=== PATIENT | male | born 1980 | race Asian ===

== ENCOUNTER 2025-03-01 11:11 | Inpatient (IN) ==
[2025-03-01] MEDS: NITROGLYCERIN SL 0.4 MG/TAB TAB SL PRN (11:33)
[2025-03-01] MEDS: ASPIRIN CHEW 324 MG PO STA (11:33)
[2025-03-01] MEDS: HEPARIN SOD (PORCINE) 1000 UNIT/ML IV ONE (11:34)
--- NOTE | 2025-03-01 11:36 | Emergency Department Note ---
Impression & Plan STEMI (ST elevation myocardial infarction), Chest pain, Tobacco abuse disorder ED Provider Note NAME: CHANDLER BARRERA AGE: 44 SEX: M : 1980 ARRIVES VIA: Walk-In INFORMANT: Patient[, ] ED PROVIDER(S): Alex Fountain MD CHIEF COMPLAINT: Chest pain MEDICAL DECISION MAKING: Shortly after signing for the patient I was given the patient's EKG which showed concern for acute STEMI. I did emergently go to the patient's room and the patient was having chest pain so a heart alert was called. Patient recently traveled from [place]. No signs or stigmata of DVT on exam. The patient was ordered aspirin heparin Brilinta as well as nitro. I did inform nursing to only give 1 nitro as there was concern for possibility of inferior TN but his pressure was currently 150/100. IV fluids also ordered. I did speak the on- call hospitalist service and did message the intensive care unit service. Critical Care: I have personally spent 35 minutes of critical care time in direct management of this patient. This includes bedside care, interpretation of diagnostic studies, and testing, discussion with consultants, patient, and family members, and other require inpatient management activities. This 35 minutes is in excess of all separately billable procedures. Discussion w/ other healthcare providers: Dr. Villalta and Dr. Koenig inpatient medicine service Dr. Jacome warehouse director and Dr. Garza Prior /Outside records reviewed: None Differential diagnosis: Cardiac ischemia, aortic dissection, pulmonary embolism, pneumothorax, pneumonia, pericarditis, myocarditis, GERD, cholecystitis, pancreatitis, musculoskeletal, as well as other pathologies were considered. Diagnostics, as interpreted by me: ECG: Normal sinus rhythm, ventricular rate of 64, borderline QRS, ST elevations inferiorly with depressions anteriorly. Concern for STEMI. Cardiac monitoring: An order was placed for continuous cardiac monitoring. The monitor shows a rate of 67 with sinus rhythm. Patient was placed on pulse oximetry Medical decision rules: Heart score Imaging studies: I informally interpreted the patient'sChest x-ray does not show obvious pneumonia or pneumothoraxwith formal report to follow. HPI: Patient presents due to concern for chest pain. Patient reportedly has had it for several days but seem to worsen yesterday. Manager Global services were utilized. The patient states that his pain seem to worsen yesterday at centralized associated sweatiness and tightness. The patient did take his blood pressure medication but took nothing else. The patient has had nausea and did try to self-induced vomiting. Patient denies any shortness of breath leg swelling or calf pain. The patient did recently travel from [place] and is visiting locally. He is accompanied by a friend. Patient does smoke 1 pack/day. No pertinent past surgical history. PAST MEDICAL HISTORY: High blood pressure PAST SURGICAL HISTORY: No pertinent past surgical history SOCIAL HISTORY: Smoking use, denies drug or alcohol use. HOME MEDICATIONS: See Below ALLERGIES: See Below VITALS: See Below PHYSICAL EXAMINATION: GENERAL: Ill in appearance. EYE EXAM: Normal conjunctiva. PERRL, no anisocoria and EOM's grossly intact w/o pain. OROPHARYNX: Moist mucus membranes, grossly normal dentition. NECK: Trachea midline, no stridor. Supple, no nuchal rigidity, no adenopathy, non-tender. No signs of meningismus. FROM of the neck with good chin to chest and neck extension. LUNGS: Clear to auscultation. Normal chest wall mechanics. HEART: NSR, no MRG. ABDOMEN: Abdomen soft, non-tender, no masses, no rebound or guarding. SKIN: No rashes and no bruising. UPPER EXTREMITIES: Upper extremities are grossly normal. LOWER EXTREMITIES: Grossly normal, no edema. Negative Homans' sign bilaterally. NEURO EXAM: Awake and alert, follows commands, no obvious facial asymmetry, normal speech, moves all 4 extremities. Past Med/Surg History Problem List (Updated 03/01/25 @ 18:51 by Alex Fountain MD) STEMI (ST elevation myocardial infarction) (Acute) Tobacco abuse disorder (Acute) CAD (coronary atherosclerotic disease) Acute [place] inferior lateral first episode care Chest pain (Acute) Social History Smoking Status: Current every day smoker Tobacco Type: Cigarettes Cigarettes Per Day: 1 pack per day; Second Hand Exposure: No; Do You Dip or Chew Tobacco: No; Tobacco Cessation Education Requested by Patient: No Hx Alcohol Use: No Hx Substance Use: No Preferred Language: Mandarin Vietnamese Communication Ability: welt wheeler Communication Tools: IPad Manager Global Required: Yes Beliefs That Will Affect Care: None Current Living Situation: Spouse Other Information That Helps Us Care for You: No Feels Safe at Home: Yes Safety Concerns: Feels Safe At This Time Assistive Devices: None Home Meds Home Medications Medication Instructions Recorded Confirmed amlodipine 5 mg tablet 5 mg PO DAILY 03/01/25 03/01/25 Results & Data (ED) Vital Signs Vital Signs - 24 hr 03/01/25 11:14 03/01/25 11:22 03/01/25 11:22 Temperature 36.4 C L Temperature Source Oral Pulse Rate 62 Pulse Rate [Apical] 70 Respiratory Rate 18 22 Respiratory Effort / Characteristics Non-Labored Spontaneous Respiratory Depth Normal Normal Blood Pressure 143/93 H Blood Pressure [Right Arm] 150/106 H Blood Pressure Mean 109 Blood Pressure Mean [Right Arm] 120 Blood Pressure Position Sitting Pulse Oximetry 99 99 Oxygen Delivery Method Room Air Room Air Room Air Sepsis Recent Fever Within 48 Hours No Sepsis New/Unexplained Change in Mental Status N/A Sepsis Action Taken by Nursing No Action Required 03/01/25 11:25 03/01/25 11:49 03/01/25 12:00 Temperature Temperature Source Pulse Rate 63 65 Pulse Rate [Apical] 65 Respiratory Rate 20 18 Respiratory Effort / Characteristics Non-Labored Respiratory Depth Normal Blood Pressure 130/83 Blood Pressure [Right Arm] 130/83 Blood Pressure Mean Blood Pressure Mean [Right Arm] 98 Blood Pressure Position Pulse Oximetry 96 98 Oxygen Delivery Method Room Air Room Air Sepsis Recent Fever Within 48 Hours Sepsis New/Unexplained Change in Mental Status Sepsis Action Taken by Senior Care Medications Current Medication List: was personally reviewed by me Laboratory Data Attestation: I reviewed the patient's lab results. 03/01/25 11:34 03/01/25 11:34 Lab Results 03/01/25 Range/Units 11:34 WBC 10.32 (4.8-10.8) K/ul RBC 5.44 (4.70-6.10) M/uL Hgb 15.6 (14.0-18.0) g/dl Hct 47.0 (42.0-52.0) % MCV 86.4 (80.0-100.0) fL MCH 28.7 (25.0-34.0) pg MCHC 33.2 (32.0-36.0) g/dL RDW Std Deviation 42.7 (36.4-46.3) fL RDW Coeff of Jeremias 13.8 (11.5-14.5) % Plt Count 330 (130-400) K/uL MPV 9.7 (9.4-12.4) fL Immature Gran % (Auto) 0.4 % Neut % (Auto) 53.0 % Lymph % (Auto) 39.5 % [place] % (Auto) 5.0 % Eos % (Auto) 1.6 % Baso % (Auto) 0.5 % Neut # (Auto) 5.47 (1.40-6.50) K/uL Lymph # (Auto) 4.08 H (1.20-3.40) K/uL [place] # (Auto) 0.52 (0.11-0.59) K/uL Eos # (Auto) 0.16 (0.00-0.50) K/uL Baso # (Auto) 0.05 (0.00-0.20) K/uL Immature Gran # (Auto) 0.04 (0.01-0.20) K/uL PT 10.5 (9.0-12.0) Seconds INR 1.0 (0.9-1.1) APTT 22 (21-31) Seconds PTT Ratio 0.8 Sodium 138 (136-145) mmol/L Potassium 4.0 (3.5-5.1) mmol/L Chloride 104 (98-107) mmol/L Carbon Dioxide 25 (21-32) mmol/L Anion Gap 9 (3-11) BUN 11 (6-23) mg/dl Creatinine 1.13 (0.6-1.4) mg/dl Est Cr Clr Drug Dosing 82.4 ml/min eGFR 83.22 BUN/Creatinine Ratio 9.7 L (10-20) Glucose 164 H (70-99(Fasting)) mg/dl Calcium 9.9 (8.6-10.3) mg/dl Magnesium 2.4 (1.7-2.4) mg/dl Total Bilirubin 0.7 (0.2-1.0) mg/dl AST 24 (13-39) U/L ALT 28 (7-52) U/L Alkaline Phosphatase 132 H (34-104) U/L Total Creatine Kinase 81 (30-223) U/L Troponin I High Sens 72.2 H* (0-20) pg/ml B-Natriuretic Peptide 84 (0-100) pg/ml Total Protein 8.8 H (6.0-8.3) gm/dl Albumin 4.6 (3.4-5.0) gm/dl Globulin 4.2 H (2.5-4.0) gm/dl Albumin/Globulin Ratio 1.1 (0.9-2) Lipase 22 (11-82) U/L TSH 1.131 (0.300-4.500) uIu/ml Administered Medications Nitroglycerin (Nitroglycerin Sl 0.4 Mg/Tab Tab) 0.4 mg SL Q5M PRN PRN Reason: Chest Pain Stop: 03/31/25 11:26 Last Admin: 03/01/25 11:33 Dose: 0.4 mg Documented By: MMG Discontinued Medications Aspirin (Aspirin Chew 324 Mg) 324 mg PO NOW STA Stop: 03/01/25 11:28 Last Admin: 03/01/25 11:33 Dose: 324 mg Documented By: MMLion Atropine Sulfate (Atropine Sulfate 0.1 Mg/Ml 10ml Syr) Confirm Administered Dose 1 mg IV .STK-MED ONE Stop: 03/01/25 12:08 Last Admin: 03/01/25 12:17 Dose: 1 mg Documented By: JOAN Fentanyl Citrate (Fentanyl Citrate Pf 100 Mcg/2 Ml Vial) Confirm Administered Dose 100 mcg .ROUTE .STK-MED ONE Stop: 03/01/25 11:46 Last Increment: 03/01/25 12:16 Dose: 25 mcg Documented By: JOAN Heparin Sodium (Porcine) (Heparin Sod (Porcine) 1000 Unit/Ml) 5,000 units IV NOW ONE Stop: 03/01/25 11:28 Last Admin: 03/01/25 11:34 Dose: 5,000 units Documented By: MMLion Co-signed By: Jose David Heparin Sodium (Porcine) (Heparin (Porcine) 1000 Unit/Ml 10 Ml (Weight Reducing Technician Use Only)) Confirm Administered Dose 10,000 units .ROUTE .STK-MED ONE Stop: 03/01/25 11:46 Last Admin: 03/01/25 12:16 Dose: 5,000 units Documented By: [facility] Heparin Sodium/Sodium Chloride (Heparin In Nss Infusion 1000 Unit/500 Ml (2 U/Ml) Bag) Confirm Administered Dose 3,000 units IV .STK-MED ONE Stop: 03/01/25 11:46 Last Admin: 03/01/25 12:16 Dose: 3,000 units Documented By: [facility] Sodium Chloride (Nss) 500 mls @ 999 mls/hr IV .Q31M ONE Stop: 03/01/25 12:06 Last Infusion: 03/01/25 13:39 Dose: Infused Documented By: Admin: 03/01/25 11:45 Dose: 999 mls/hr Documented By: ISAAC Iodixanol (Iodixanol (Visipaque) 320 Mg/Ml 100ml) Confirm Administered Dose 1 ml IV .STK-MED ONE Stop: 03/01/25 11:46 Last Admin: 03/01/25 12:16 Dose: Not Given Documented By: [facility] Ioversol (Optiray 350) Confirm Administered Dose 1 ml .ROUTE .STK-MED ONE Stop: 03/01/25 11:46 Last Admin: 03/01/25 13:38 Dose: Not Given Documented By: LALITA Midazolam HCl (Midazolam Hcl 1 Mg/Ml 2ml Vial) Confirm Administered Dose 2 mg .ROUTE .STK-MED ONE Stop: 03/01/25 11:46 Last Increment: 03/01/25 12:17 Dose: 1 mg Documented By: [facility] Nicardipine HCl (Nicardipine 2,000 Mcg/20 Ml Syr) Confirm Administered Dose 2,000 mcg .ROUTE .STK-MED ONE Stop: 03/01/25 11:46 Last Admin: 03/01/25 12:17 Dose: 2,000 mcg Documented By: [facility] Nitroglycerin/Dextrose (Nitroglycerin/D5w 100mcg/Ml 20ml Syr) Confirm Administered Dose 2,000 mcg .ROUTE .STK-MED ONE Stop: 03/01/25 11:46 Last Admin: 03/01/25 12:17 Dose: 2,000 mcg Documented By: [facility] Ticagrelor (Ticagrelor 90 Mg Tab) 180 mg PO ONE ONE Stop: 03/01/25 11:28 Last Admin: 03/01/25 11:39 Dose: 180 mg Documented By: ISAAC Imaging Data Radiologist's Impression: Chest X-Ray 03/01/25 11:27 XR chest 1V portable HISTORY: 44 years-old Male Chest pain, nonspecific COMPARISON: None TECHNIQUE: AP view of the chest FINDINGS: Cardiac silhouette is upper limits of normal in size. No pneumothorax, pleural effusion or airspace consolidation. The bones appear grossly intact. IMPRESSION: No acute process. ACT 112: Negative or not required by law. The above report was generated using voice recognition software. It may contain grammatical, syntax or spelling errors. Electronically signed by: Ventura Toscano M.D. 03/01/2025 11:48 AM Discharge Plan Visit Data Chief Complaint: Chest Pain Stated Complaint: CHEST PAIN, HIGH BP, HARD TO BREATH ED Provider: Alex Fountain Discharge Problem: STEMI (ST elevation myocardial infarction), Chest pain, Tobacco abuse disorder Patient Disposition: Admitted As Inpatient Condition: Fair Discharge Instructions Interventions: ED Discharge Assessment Last Done: 03/01/25 12:00 Discharge Problem: STEMI (ST elevation myocardial infarction) Qualifiers: Involved coronary artery: right coronary artery Qualified Code(s): I21.11 - ST elevation (STEMI) myocardial infarction involving right coronary artery Chest pain Qualifiers: Chest pain type: unspecified Qualified Code(s): R07.9 - Chest pain, unspecified
[2025-03-01] MEDS: TICAGRELOR 90 MG TAB PO ONE (11:39)
[2025-03-01] MEDS: SODIUM CHLORIDE 0.9% 500 ML IV ONE (11:45)
--- NOTE | 2025-03-01 11:50 | XRay Report ---
XR chest 1V portable HISTORY: 44 years-old Male Chest pain, nonspecific COMPARISON: None TECHNIQUE: AP view of the chest FINDINGS: Cardiac silhouette is upper limits of normal in size. No pneumothorax, pleural effusion or airspace c onsolidation. The bones appear grossly intact. IMPRESSION: No acute process. ACT 112: Negative or not required by law. The above report was generated using voice recognition software. It may contain grammatical, syntax o r spelling errors. Electronically signed by: Ventura Toscano M.D. 03/01/2025 11:48 AM
[2025-03-01 11:56] LABS: Basophils # (auto) 0.05 K/uL (0.00-0.20); Basophils % (auto) 0.5 %; Eosinophils # (auto) 0.16 K/uL (0.00-0.50); Eosinophils % (auto) 1.6 %; Hemoglobin 15.6 g/dl (14.0-18.0); Immature Granulocytes # (auto) 0.04 K/uL (0.01-0.20); Immature Granulocytes % (auto) 0.4 %; Lymphocytes # (auto) 4.08 K/uL (1.20-3.40); Lymphocytes % (auto) 39.5 %; Mean Corpuscular Hemoglobin 28.7 pg (25.0-34.0); Mean Corpuscular Hgb Conc 33.2 g/dL (32.0-36.0); Mean Corpuscular Volume 86.4 fL (80.0-100.0); Mean Platelet Volume 9.7 fL (9.4-12.4); Monocytes # (auto) 0.52 K/uL (0.11-0.59); Neutrophils # (auto) 5.47 K/uL (1.40-6.50); Platelet Count 330 K/uL (130-400); RDW Coefficient of Variation 13.8 % (11.5-14.5); RDW Standard Deviation 42.7 fL (36.4-46.3); Red Blood Count 5.44 M/uL (4.70-6.10); White Blood Count 10.32 K/ul (4.8-10.8)
[2025-03-01 12:00] LABS: Partial Thromboplastin Ratio 0.8; Partial Thromboplastin Time 22 Seconds (21-31); Prothrombin Time 10.5 Seconds (9.0-12.0)
--- NOTE | 2025-03-01 12:07 | History & Physical Report ---
Date of Service March 01, 2025 Assessment & Plan (1) Chest pain: (2) Acute [place] inferior lateral first episode care: Plan Pt is a 44 yo male who presented to ED with chest pain and found to have ECG with findings of acute inferior lateral FL. HR was stable in the 60's, BP was elevated 150/106, O2 sat was >90% on RA. Troponin drawn, pending. Pt was taken to labor relations teacher. #Chest pain/Acute inferolateral FL Pt was taken to labor relations teacher and found to have 100% occlusion at mid-distal RCA, which was stented. Other occlusions found: Mid LAD- 80%, left circumflex-90% at mid segment stenosis followed by focal 70-80% stenosis. Pt admitted to ICU, followed by critical care team. - Interventional cardiology consult, recommendations appreciated: Continue aspirin Brilinta x 1 yr Start beta-stef and statin Echocardiogram for 03/02/25 Admit to ICU Outpatient cardiac rehab following hospital DC Staged PCI of left circumflex and LAD prior to discharge Follow up with cardiology outpatient in 4 weeks - Critical care team following Started metoprolol, aspirin, atorvastatin Dispo: ICU Code: Full Diet: NPO, heart healthy diet following procedure DVT prophylaxis: Heparin drip History of Present Illness Chief Complaint: Chest pain Primary Care Provider: NO PCP Pt is a 44 yo male with PMH of HTN and kidney stone who presented to ED with 2 days of chest pain, SOB and cold sweats that progressed over the last 24 hours. Translation services was used for interview and exam as speaks mandarin wolof only. He is from [place] and arrived in the in Nov 2024. His is in [place] visiting friends/family, pt came to [place] 3 days ago to visit friends. At bedside is pt's friends and 2 children- who speaks [place]an and mandarin and assists somewhat with translation. Pt reports that he was feeling unwell when he arrived in [place], but symptoms increased last night prompting him to come to ED. Pt's friend states this morning pt was pale, sweating and SOB. Pt denies personal history of heart problems. He does not know if he has high cholesterol. He endorses smoking 1 pack of cigarettes per day for many years. Pt states he was taking amlodipine 5mg for HTN up until 2 weeks ago, when he stopped taking due to normal BP. Pt's father from an [place] in his 60's. No other known family history of cardiac problems. Pt denies abdominal pain, headache, nausea, vomiting, syncope, extremity weakness, altered sensation, or dysuria Pt denies alcohol or recreational drug use. Home Medications Medication Instructions Recorded Confirmed Type amlodipine 5 mg tablet 5 mg PO DAILY 03/01/25 03/01/25 History Past Med/Surg History Problem List (Updated 03/01/25 @ 13:08 by Zack Jacome DO) STEMI (ST elevation myocardial infarction) Tobacco abuse disorder CAD (coronary atherosclerotic disease) Acute [place] inferior lateral first episode care Chest pain Social History Smoking Status: Current every day smoker Tobacco Type: Cigarettes Cigarettes Per Day: 1 pack per day; Second Hand Exposure: No; Do You Dip or Chew Tobacco: No; Tobacco Cessation Education Requested by Patient: No Hx Alcohol Use: No Hx Substance Use: No Preferred Language: Mandarin Luxembourger Communication Ability: element burner Communication Tools: IPad Inbound Customer Service Agent Required: Yes Beliefs That Will Affect Care: None Current Living Situation: Spouse Other Information That Helps Us Care for You: No Feels Safe at Home: Yes Safety Concerns: Feels Safe At This Time Assistive Devices: None Review of Systems Review of Systems: As per HPI Physical Exam Physical Exam: Pt examined following cardiac cath and stent placement Gen: Sitting up in bed, NAD Cardio: RRR, S1, S2, no murmurs Respiratory: CTAB, No increased work of breathing. Abd: Soft, nontender, normoactive BS Neuro: A&O x 3 Skin: Dry, no rashes Extremities: Able to move all extremities on command. No LE edema noted Psych: Mood congruent Results & Data Results & Data Vital Signs (Past 12 Hours) Vital Signs Temp Pulse Pulse Resp BP BP Pulse Ox 03/01/25 12:00 65 18 130/83 98 03/01/25 11:49 65 20 130/83 96 03/01/25 11:25 63 03/01/25 11:22 03/01/25 11:22 70 22 150/106 H 99 03/01/25 11:14 36.4 C L 62 18 143/93 H 99 O2 Del Method 03/01/25 12:00 Room Air 03/01/25 11:49 Room Air 03/01/25 11:25 03/01/25 11:22 Room Air 03/01/25 11:22 Room Air 03/01/25 11:14 Room Air Laboratory Results Abnormal lab results 03/01/25 Range/Units 11:34 Lymph # (Auto) 4.08 H (1.20-3.40) K/uL BUN/Creatinine Ratio 9.7 L (10-20) Glucose 164 H (70-99(Fasting)) mg/dl Alkaline Phosphatase 132 H (34-104) U/L Diagnostic Findings Chest X-Ray 03/01/25 11:27 XR chest 1V portable HISTORY: 44 years-old Male Chest pain, nonspecific COMPARISON: None TECHNIQUE: AP view of the chest FINDINGS: Cardiac silhouette is upper limits of normal in size. No pneumothorax, pleural effusion or airspace consolidation. The bones appear grossly intact. IMPRESSION: No acute process. ACT 112: Negative or not required by law. The above report was generated using voice recognition software. It may contain grammatical, syntax or spelling errors. Electronically signed by: Ventura Toscano M.D. 03/01/2025 11:48 AM Supervising Physician Co-Signing Physician Notes I personally examined the patient and verified hager points of history and exam, discussed case, and agree with decision making and plan documented by Dr. Villalta. [employer] land appraiser [id number] utilized during examination. Patient visiting from [email or web address] with his who is currently in [place]. He came to [place] to visit a friend he grew up with who lives here. Reported intense chest pain and malaise today. Patient found to have acute myocardial infarction with STEMI on ECG and elevated troponins. [place] to right coronary on catheterization today. Recommended continuation of aspirin and Brilinta telemetry, with guideline directed medical therapy including beta-stef and statin. Examined patient post catheterization. Patient appears comfortable, lungs clear b/l to auscultation, regular rate and rhythm, no LE edema, no acute distress. Patient reports improvement of chest pain. Patient's father in 60s of [place]. He smokes 1ppd. Has not been taking prescribed amlodipine for over a month. Monitor in ICU. Resident Activity Tracking Resident Involvement: Resident Care Provided Care Provided: Adult Hospital Medicine
[2025-03-01 12:09] LABS: Albumin Level 4.6 gm/dl (3.4-5.0); BUN Creatinine Ratio 9.7 (10-20); Calcium 9.9 mg/dl (8.6-10.3); Creatinine Clr Calc Pharmacy 82.4 ml/min; Magnesium 2.4 mg/dl (1.7-2.4)
[2025-03-01] MEDS: HEPARIN (PORCINE) 1000 UNIT/ML 10 ML (CATH LAB USE ONLY) ONE (12:16)
[2025-03-01] MEDS: IODIXANOL (VISIPAQUE) 320 MG/ML 100ML IV ONE (12:16)
[2025-03-01] MEDS: fentaNYL citrate PF 100 MCG/2 ML VIAL ONE (12:16)
[2025-03-01 12:17] LABS: Albumin Globulin Ratio 1.1 (0.9-2); Bilirubin,Total 0.7 mg/dl (0.2-1.0); Globulin 4.2 gm/dl (2.5-4.0); Total Protein 8.8 gm/dl (6.0-8.3)
[2025-03-01] MEDS: MIDAZOLAM HCL 1 MG/ML 2ML VIAL ONE (12:17)
[2025-03-01] MEDS: NITROGLYCERIN/D5W 100MCG/ML 20ML SYR ONE (12:17)
[2025-03-01] MEDS: ATROPINE SULFATE 0.1 MG/ML 10ML SYR IV ONE (12:17)
[2025-03-01] MEDS: niCARdipine 2,000 MCG/20 ML SYR ONE (12:17)
[2025-03-01 12:26] LABS: Thyroid Stimulating Hormone 1.131 uIu/ml (0.300-4.500)
[2025-03-01 12:28] LABS: Troponin I High Sensitivity 72.2 pg/ml (0-20)
--- NOTE | 2025-03-01 12:47 | Cardiac Catheterization ---
Cardiac Cath Procedure Full Procedure Date March 01, 2025 Pre-Procedure Diagnosis Pre-Procedure Diagnosis: STEMI AUC Score AUC Score: 9 Post-Procedure Diagnosis Post-Procedure Diagnosis: Severe CAD, Successful PCI and Normal LV Systolic Function Procedure(s) Performed Procedure(s) Performed: Coronary Angiography, Left Heart Cath, LV Angiography, PTCA and Drug Eluting Stent Time Stamp Assembler Goyo Feng MD Estimated Blood Loss Estimated Blood Loss: 5 cc Summary of Findings STEMI cath report Procedures performed 1. Retrograde insertion of a right radial sheath, 5/6 slender using Seldinger technique 2. Coronary angiography 3. Left heart cath and left ventriculography 4. Percutaneous intervention of the left circumflex using a 4.0 mm x 26 mm Synergy XD drug-eluting stent in the mid to distal RCA 5. Moderate sedation Procedure: Patient was brought to the cardiac apposition lab in emergent condition, emergent consent was obtained The right radial site and the right groin site were prepped in normal fashion We then administered 1% lidocaine to the right radial site We then inserted a 5/6 slender sheath in the right radial artery using Seldinger technique We then advanced a JR4 guide to the right coronary artery and selective arteriograms were obtained We then advanced an JL 3.5 diagnostic catheter to the left left coronary artery system and selective arteriograms were obtained, the results are as below We then used a pigtail catheter to perform a left heart catheterization and LV gram, the results are as below Left heart catheterization: LVEDP: 28 mmHg Left ventriculogram: LV function of 60% with lateral and inferior wall hypokinesis Gradient across aortic valve: None noted Coronary angiography 1. Left main: Is a large size vessel which has diffuse luminal irregularities 2. Left anterior descending artery is a large size artery which has focal ulcerated 80% stenosis in the midsegment the vessel. The rest the vessel has diffuse luminal irregularities. There are 2 small size diagonal branches which have diffuse luminal irregularities 3. Left circumflex: Is a small size artery which has 90% mid segment stenosis, followed by a focal 70 to 80% stenosis, the rest of the vessel has mild nonobstructive CAD. There is a small size obtuse marginal 1 branch which has mild nonobstructive CAD 4. Right coronary artery: Is a large size artery which has very ulcerated and aneurysmal proximal to mid segment of the vessel which has 20 to 30% diffuse stenosis. The mid segment of the vessel leading into the distal segment has 100% occlusion, the rest of the vessel has SALVADOR 0 flow Following the diagnostic portion of the coronary angiography were performed PCI of the right coronary artery We then advanced a run-through wire to the distal segment of the RCA We then advanced a 2.5 x 12 mm NC balloon performed predilatation of the lesion 18 aguilar x 2 Lesion: Mid to distal RCA Lesion length: 22 mm Pre-PCI stenosis: 100% Pre-PCI SALVADOR flow: 0 Post-PCI stenosis: 0% Post-PCI stenosis: 3 Stent: We then advanced a 4.0 mm x 26 mm Synergy XD drug-eluting stent and deployed this at 16 aguilar Following this a cine image of the right coronary artery showed good stent expansion, good apposition and no edge dissection or no distal wire perforation Following the completion of the procedure the wire and catheter were removed from the body . The patient was monitored, patient's heart rate, blood pressure, respiratory rate were monitored through the entire the procedure There were no complications were noted Patient was transferred to the ICU in stable condition Case was discussed with hospital medicine as well as general crop production advisor on- call Findings 1. Severe obstructive coronary artery disease of the right coronary artery, culprit vessel for the STEMI 2. Residual obstructive coronary artery disease of the left circumflex and LAD, known culprit lesions 3. Normal LV function of 60% with inferior wall hypokinesis 4. Severely elevated LVEDP of 28 mmHg 5. Successful PCI of the right coronary artery with 1 drug-eluting stent Recommendations: We would recommend continuation of aspirin and Brilinta for 1 year We would recommend addition of beta-stef and statin for guideline directed medical therapy for his coronary artery disease We would recommend echocardiogram in a.m. Would recommend admission to ICU Critical care medicine to admit, cardiology to follow Would recommend outpatient cardiac rehabilitation Would recommend staged PCI of the left circumflex and LAD prior to discharge Would recommend follow-up with primary crop production advisor in 4 weeks Hemodynamics Rest Ao:: 112/86 Final Ao: 124/76 LV: 122/08/11 Recommendations Recommendations: Management Recommendatons (As stated above in Recommendations) Radiation Exposure (mGy) Please refer to Prepress Technician log Contrast (mls) Please refer to Prepress Technician log I attest to the content of the Intraoperative Record and any orders documented therein. Any exceptions are noted below. ACC Data: Prepress Technician Cardiac Status Clinical evaluation leading to the procedure CAD Presenation: STEMI Diagnostic Physicians Name: Goyo Feng MD Closure Device Recommendations: Management Recommendatons (As stated above in Recommendations)
--- NOTE | 2025-03-01 12:50 | Cardiac Catheterization ---
Cardiac Cath Procedure Full Procedure Date March 01, 2025 Pre-Procedure Diagnosis Pre-Procedure Diagnosis: STEMI AUC Score AUC Score: 9 Post-Procedure Diagnosis Post-Procedure Diagnosis: Severe CAD, Successful PCI and Normal LV Systolic Function Procedure(s) Performed Procedure(s) Performed: Coronary Angiography, Left Heart Cath, LV Angiography, PTCA and Drug Eluting Stent Show Card Writer Goyo Feng MD Estimated Blood Loss Estimated Blood Loss: 5 cc Summary of Findings STEMI cath report Procedures performed 1. Retrograde insertion of a right radial sheath, 5/6 slender using Seldinger technique 2. Coronary angiography 3. Left heart cath and left ventriculography 4. Percutaneous intervention of the left circumflex using a 4.0 mm x 26 mm Synergy XD drug-eluting stent in the mid to distal RCA 5. Moderate sedation Procedure: Patient was brought to the cardiac apposition lab in emergent condition, emergent consent was obtained The right radial site and the right groin site were prepped in normal fashion We then administered 1% lidocaine to the right radial site We then inserted a 5/6 slender sheath in the right radial artery using Seldinger technique We then advanced a JR4 guide to the right coronary artery and selective arteriograms were obtained We then advanced an JL 3.5 diagnostic catheter to the left left coronary artery system and selective arteriograms were obtained, the results are as below We then used a pigtail catheter to perform a left heart catheterization and LV gram, the results are as below Left heart catheterization: LVEDP: 28 mmHg Left ventriculogram: LV function of 60% with lateral and inferior wall hypokinesis Gradient across aortic valve: None noted Coronary angiography 1. Left main: Is a large size vessel which has diffuse luminal irregularities 2. Left anterior descending artery is a large size artery which has focal ulcerated 80% stenosis in the midsegment the vessel. The rest the vessel has diffuse luminal irregularities. There are 2 small size diagonal branches which have diffuse luminal irregularities 3. Left circumflex: Is a small size artery which has 90% mid segment stenosis, followed by a focal 70 to 80% stenosis, the rest of the vessel has mild nonobstructive CAD. There is a small size obtuse marginal 1 branch which has mild nonobstructive CAD 4. Right coronary artery: Is a large size artery which has very ulcerated and aneurysmal proximal to mid segment of the vessel which has 20 to 30% diffuse stenosis. The mid segment of the vessel leading into the distal segment has 100% occlusion, the rest of the vessel has SALVADOR 0 flow Following the diagnostic portion of the coronary angiography were performed PCI of the right coronary artery We then advanced a run-through wire to the distal segment of the RCA We then advanced a 2.5 x 12 mm NC balloon performed predilatation of the lesion 18 aguilar x 2 Lesion: Mid to distal RCA Lesion length: 22 mm Pre-PCI stenosis: 100% Pre-PCI SALVADOR flow: 0 Post-PCI stenosis: 0% Post-PCI stenosis: 3 Stent: We then advanced a 4.0 mm x 26 mm Synergy XD drug-eluting stent and deployed this at 16 aguilar Following this a cine image of the right coronary artery showed good stent expansion, good apposition and no edge dissection or no distal wire perforation Following the completion of the procedure the wire and catheter were removed from the body . The patient was monitored, patient's heart rate, blood pressure, respiratory rate were monitored through the entire the procedure There were no complications were noted Patient was transferred to the ICU in stable condition Case was discussed with hospital medicine as well as general seed tester on- call Findings 1. Severe obstructive coronary artery disease of the right coronary artery, culprit vessel for the STEMI 2. Residual obstructive coronary artery disease of the left circumflex and LAD, known culprit lesions 3. Normal LV function of 60% with inferior wall hypokinesis 4. Severely elevated LVEDP of 28 mmHg 5. Successful PCI of the right coronary artery with 1 drug-eluting stent Recommendations: We would recommend continuation of aspirin and Brilinta for 1 year We would recommend addition of beta-stef and statin for guideline directed medical therapy for his coronary artery disease We would recommend echocardiogram in a.m. Would recommend admission to ICU Critical care medicine to admit, cardiology to follow Would recommend outpatient cardiac rehabilitation Would recommend staged PCI of the left circumflex and LAD prior to discharge Would recommend follow-up with primary seed tester in 4 weeks Hemodynamics Rest Ao:: 112/86 Final Ao: 124/72 LV: 122/08/11 Recommendations Recommendations: Management Recommendatons (As stated above in Recommendations) Radiation Exposure (mGy) Referred to Senior Technical Project Manager report Contrast (mls) Refer to Senior Technical Project Manager report I attest to the content of the Intraoperative Record and any orders documented therein. Any exceptions are noted below. ACC Data: Senior Technical Project Manager Cardiac Status Clinical evaluation leading to the procedure CAD Presenation: STEMI Diagnostic Physicians Name: Goyo Feng MD Closure Device Recommendations: Management Recommendatons (As stated above in Recommendations)
--- NOTE | 2025-03-01 13:12 | Critical Care Consultation ---
Date of Consultation March 01, 2025 Assessment & Plan (1) STEMI (ST elevation myocardial infarction): Reason Critically Ill: 44-year-old male without significant past medical history, daily smoker who presents with ST elevation MN who underwent successful PCI of right coronary and a likely will undergo additional PCI in the next 24 to 48 hours Neuro - RASS GOAL 0 Avoid sedating medications Multimodal pain management. APAP PRN pain/fever Cardiac - Post-PCI EKG pending MAP goal > 65mmHg Cardiology consultation DAPT in AM, BB and ACEI as hemodynamics allow TTE pending Start statin A1c and lipid panel pending Respiratory - SpO2 > 92% IS/Flutter HOB 30 GI - Diet: Advance RANDOLPH RENAL/LYTES - Replete electrolytes as indicated Maintain net even to net negative ENDO - BG 140-180 per SCCM guidelines ISS if needed while inpatient A1c pending HEME - DAPT as above ID - No acute concerns LINES/TUBES/DRAINS - PIV x2 DVT PROPHYLAXIS - Reassess tomorrow Critical care will sign off (2) CAD (coronary atherosclerotic disease): (3) Tobacco abuse disorder: History of Present Illness Reason for Consultation: Status post PCI and single-vessel intervention at this time for ST elevation MN Attending Physician: Katia Koenig DO History of Present Illness Patient is a 44-year-old male smoker without significant past medical history who recently arrived to the [facility] from [place]. He was having progressive chest pain with associated shortness of breath and came to the emergency department for additional evaluation. He was found to have an acute ST elevation MN and went emergently to the cardiac [facility]. I discussed with the identification technician he had 1 stent placed in the right RCA. He has persistently hyperdynamic ventricle and not all EKG leads have had normalization of his ST segments. There is additionally a 90% circumflex lesion as well as a ulcerated LAD and we anticipate him returning to the [facility] for formal repair/stenting of those lesions Patient speaks primarily Setswana Patient History Social History Smoking Status: Current every day smoker Communication Tools: IPad Feels Safe at Home: Yes Physical Exam Physical Exam: General: Alert. nontoxic. Skin: Warm, dry, Head: Atraumatic Ears, nose, mouth and throat: airway patent Cardiovascular: Normal peripheral perfusion Respiratory: no respiratory distress Gastrointestinal: Non distended Musculoskeletal: No deformity Results & Data Results & Data Vital Signs (Past 12 Hours) Vital Signs Temp Pulse Pulse Resp BP BP Pulse Ox 03/01/25 12:00 65 18 130/83 98 03/01/25 11:49 65 20 130/83 96 03/01/25 11:25 63 03/01/25 11:22 03/01/25 11:22 70 22 150/106 H 99 03/01/25 11:14 36.4 C L 62 18 143/93 H 99 O2 Del Method 03/01/25 12:00 Room Air 03/01/25 11:49 Room Air 03/01/25 11:25 03/01/25 11:22 Room Air 03/01/25 11:22 Room Air 03/01/25 11:14 Room Air Coding Level of Care Code 47001 IN/OBS CONSULT LVL 3,45M Diagnoses ST elevation myocardial infarction involving right coronary artery I21.11 Involved coronary artery: right coronary artery CAD (coronary atherosclerotic disease) I25.10 Tobacco abuse disorder Z72.0 (1) STEMI (ST elevation myocardial infarction) Involved coronary artery: right coronary artery Qualified Code(s): I21.11 - ST elevation (STEMI) myocardial infarction involving right coronary artery
--- NOTE | 2025-03-01 13:36 | XRay Report ---
XR chest 1V portable HISTORY: 44 years-old Male Chest pain, nonspecific COMPARISON: 03/01/2025 TECHNIQUE: AP view of the chest FINDINGS: Heart size is normal. The lungs appear clear. No pneumothorax, pleural effusion or airspace consolida tion. Spondylitic spurring of the spine. IMPRESSION: No acute process. ACT 112: Negative or not required by law. The above report was generated using voice recognition software. It may contain grammatical, syntax o r spelling errors. Electronically signed by: Ventura Toscano M.D. 03/01/2025 1:35 PM
[2025-03-01] MEDS: OPTIRAY 350 ONE (13:38)
--- NOTE | 2025-03-01 14:10 | Electrocardiogram Report ---
Test Reason : Blood Pressure : */* mmHG Vent. Rate : 64 BPM Atrial Rate : 64 BPM P-R Int : 190 ms QRS Dur : 120 ms QT Int : 424 ms P-R-T Axes : 61 82 97 degrees QTcB Int : 437 ms Normal sinus rhythm Non-specific intra-ventricular conduction delay ST elevation consider inferolateral injury or acute infarct ACUTE ID / STEMI Consider right ventricular involvement in acute inferior infarct or posterior extension Abnormal ECG No previous ECGs available Confirmed by Murali Lance ([id number]) on 03/01/2025 2:10:29 PM Referred By: Confirmed By: Murali Lance
[2025-03-01] MEDS: METOPROLOL TARTRATE 25 MG TAB PO SCH (20:37)
[2025-03-01] MEDS: Patient's ALLERGY Info needs ENTERED STA (23:16)
[2025-03-02 05:15] LABS: Hematocrit (blood only) 43.5 % (42.0-52.0); Hemoglobin 14.6 g/dl (14.0-18.0); Mean Corpuscular Hemoglobin 29.1 pg (25.0-34.0); Mean Corpuscular Hgb Conc 33.6 g/dL (32.0-36.0); Mean Corpuscular Volume 86.7 fL (80.0-100.0); Mean Platelet Volume 10.1 fL (9.4-12.4); Platelet Count 328 K/uL (130-400); RDW Coefficient of Variation 13.8 % (11.5-14.5); RDW Standard Deviation 43.7 fL (36.4-46.3); Red Blood Count 5.02 M/uL (4.70-6.10); White Blood Count 10.31 K/ul (4.8-10.8)
[2025-03-02 05:33] LABS: BUN Creatinine Ratio 13.4 (10-20); Calcium 9.4 mg/dl (8.6-10.3); Potassium 3.8 mmol/L (3.5-5.1)
--- NOTE | 2025-03-02 06:59 | Hospitalist Progress Note ---
Date of Service March 02, 2025 Assessment & Plan (1) Chest pain: (2) Acute CT inferior lateral first episode care: Plan Pt is a 44 yo male who presented to ED with chest pain and found to have ECG with findings of acute inferior lateral CT. HR was stable in the 60's, BP was elevated 150/106, O2 sat was >90% on RA. Pt was taken to [facility] lab for angio and stent. #Chest pain/Acute inferolateral CT Pt was taken to [facility] lab and found to have 100% occlusion at mid-distal RCA, which was stented. Other occlusions found: Mid LAD- 80%, left circumflex-90% at mid segment stenosis followed by focal 70-80% stenosis. Pt admitted to ICU, followed by critical care team. Planned for return to [facility] lab today for stenting of LAD and left circumflex. - Interventional cardiology consult, recommendations appreciated: Continue aspirin Brilinta x 1 yr Continue beta-stef and statin Echocardiogram for 03/02/25 Outpatient cardiac rehab following hospital DC PCI of left circumflex and LAD scheduled for today Follow up with cardiology outpatient in 4 weeks - Critical care team following Continue metoprolol, aspirin, atorvastatin - Ordered A1c, lipid panel- will follow Dispo: ICU Code: Full Diet: NPO, heart healthy diet following procedure DVT prophylaxis: Heparin drip Admission and Anticipated Discharge Date Admission Date: March 01, 2025 Supervising Physician Co-Signing Physician Notes I personally examined the patient and verified all hager points of history and exam, discussed case, and agree with decision making with Dr Villalta Feeling okay today. Discussed diagnoses and plans moving forward. Discussed secondary risk reduction. In terms of exercise habits, he does some push-ups every day and jumps rope every now and then, but not really any dedicated or regular cardiovascular exercise. He also smokes daily probably about a pack a dayexpresses an immediate willingness to cut down to 3-4 cigarettes a day, but seems to have a harder time with the thought of quitting entirely. Noting "I do not drink could I continue smoking?"vitals noted, in general he is awake and alert pleasant no distress. HEENT normocephalic atraumatic mucous membranes moist. Thing unlabored no accessory muscle use good effort. Skin without rashes pallor or icterus. Neuro without focal deficits. STEMI/coronary artery disease - triple-vessel disease, status post stenting of the culprit lesion for the STEMI. Cardiology planning on stenting the remaining lesions. Continue med management secondary risk reduction - started to discuss lifestyle (emphasis on exercise with an ideal goal of 20-30 minutes every day once he has recovered from the current event, as well as ideally absolute smoke cessationdiscussed that cutting down could be a bridge to cessation, but that tobacco abuse tends to be correlated quite tightly with coronary disease and given how premature his coronary disease is out right cessation would be strongly recommended) - check lipids and A1c Subjective No acute events overnight. Via manager home improvement, pt reports he is feeling well this morning. He denies chest pain, SOB, or nausea. Pt acknowledges that he will be returning to [facility] lab today with cardiology for stenting of left circumflex and LAD. He states his will not be coming to [place] until tomorrow. His local friends will also not be coming to the hospital today, but their contact info is available. Patient with history of 1 pack per day tobacco for many years- no current nicotine cravings reported Review of Systems Review of Systems: As per HPI Physical Exam Physical Exam: Pt examined following cardiac cath and stent placement Gen: Sitting up in bed, NAD Cardio: RRR, S1, S2, no murmurs Respiratory: CTAB, No increased work of breathing. Abd: Soft, nontender, normoactive BS Neuro: A&O x 3 Skin: Dry, no rashes Extremities: Able to move all extremities on command. No LE edema noted Psych: Mood congruent Results & Data Results & Data Vital Signs (Past 12 Hours) Vital Signs Temp Pulse Resp BP Pulse Ox 03/02/25 03:03 56 L 8 L 99 03/02/25 02:09 59 L 11 L 97 03/02/25 01:06 59 L 20 98 03/02/25 00:12 64 20 109/97 98 03/02/25 00:00 57 L 03/01/25 23:15 62 17 03/01/25 22:03 82 21 96 03/01/25 21:27 64 24 97 03/01/25 20:21 68 20 115/85 98 03/01/25 20:00 36.7 C 03/01/25 19:06 127/90 03/01/25 19:06 127/90 03/01/25 19:06 88 23 Resident Activity Tracking Resident Involvement: Resident Care Provided Care Provided: Adult Hospital Medicine (1) Chest pain Chest pain type: unspecified Qualified Code(s): R07.9 - Chest pain, unspecified
[2025-03-02] MEDS: ATORVASTATIN 40 MG TAB PO SCH (08:53)
[2025-03-02] MEDS: ASPIRIN 81 MG ECTAB PO SCH (08:53)
--- NOTE | 2025-03-02 11:24 | Electrocardiogram Report ---
Test Reason : Blood Pressure : */* mmHG Vent. Rate : 68 BPM Atrial Rate : 68 BPM P-R Int : 164 ms QRS Dur : 92 ms QT Int : 410 ms P-R-T Axes : 45 -7 69 degrees QTcB Int : 435 ms Normal sinus rhythm Inferior infarct , possibly acute ACUTE NC / STEMI Consider right ventricular involvement in acute inferior infarct Abnormal ECG When compared with ECG of 01-Mar-2025 11:22, Questionable change in QRS duration Inferior infarct is now Present Confirmed by Murali Lance ([id number]) on 03/02/2025 11:24:00 AM Referred By: REFERRED SELF Confirmed By: Murali Lance
--- NOTE | 2025-03-02 12:42 | Billing Data ---
Date of Service March 02, 2025 Coding Level of Care Code 97332 SUB INP/OBS CARE
[2025-03-02] MEDS: niCARdipine 2,000 MCG/20 ML SYR ONE (14:23)
[2025-03-02] MEDS: NITROGLYCERIN/D5W 100MCG/ML 20ML SYR ONE (14:24)
--- NOTE | 2025-03-02 14:30 | Pre Anesthesia Assessment ---
Date of Service March 02, 2025 Pre Sedation Assessment Vital Signs Temp Pulse Pulse Resp BP BP Pulse Ox 03/02/25 13:05 65 14 118/76 98 03/02/25 12:00 98.1 F 60 18 107/74 98 03/02/25 08:46 98 F 68 18 110/70 99 03/02/25 07:38 60 03/02/25 03:03 56 L 8 L 99 03/02/25 02:09 59 L 11 L 97 03/02/25 01:06 59 L 20 98 03/02/25 00:12 64 20 109/97 98 03/02/25 00:00 57 L 03/01/25 23:15 62 17 03/01/25 22:03 82 21 96 03/01/25 21:27 64 24 97 03/01/25 20:21 68 20 115/85 98 03/01/25 20:00 98.1 F 03/01/25 19:06 127/90 03/01/25 19:06 127/90 03/01/25 19:06 88 23 03/01/25 17:00 72 22 100 03/01/25 16:45 68 27 H 100 03/01/25 16:09 72 20 99 03/01/25 16:01 126/72 03/01/25 16:00 63 03/01/25 15:30 67 17 98 03/01/25 15:21 126/84 03/01/25 15:09 65 19 98 03/01/25 15:00 78 14 99 03/01/25 14:45 81 22 99 O2 Del Method 03/02/25 13:05 Room Air 03/02/25 12:00 Room Air 03/02/25 08:46 Room Air 03/02/25 07:38 03/02/25 03:03 03/02/25 02:09 03/02/25 01:06 03/02/25 00:12 03/02/25 00:00 03/01/25 23:15 03/01/25 22:03 03/01/25 21:27 03/01/25 20:21 03/01/25 20:00 03/01/25 19:06 03/01/25 19:06 03/01/25 19:06 03/01/25 17:00 03/01/25 16:45 03/01/25 16:09 03/01/25 16:01 03/01/25 16:00 03/01/25 15:30 03/01/25 15:21 03/01/25 15:09 03/01/25 15:00 03/01/25 14:45 Cardiovascular + regular rate Respiratory + respiratory effort normal Pre-Sedation Airway Assessment Smoking Status: Current every day smoker Hx Sleep Apnea: No Short, Thick Neck: No Thyromental Distance: > or= 3.5 Finger Breadths Oral Cavity: + WNL Mallampati Class: II ASA: ASA2 NPO Status Date of Last Intake of Fluids: 03/01/25 Time of Last Intake of Fluids: 18:00 Date of Last Intake of Solid Food: 03/01/25 Time of Last Intake of Solid Foods: 18:00 Procedure Planning Contraindications for Sedation: none Current Medications Reviewed: Yes Notes The planned sedation has been discussed with the patient. Informed Consent was obtained. I have identified the patient, determined the appropriateness of sedation and have assessed the patient immediately prior to the procedure. All medicine(s) and interventions are by my order.
[2025-03-02] MEDS: LIDOCAINE 1% LOCAL 20 ML VIAL ONE (14:36)
--- NOTE | 2025-03-02 15:33 | Post Anesthesia Assessment ---
Date of Service March 02, 2025 Post Sedation Assessment Vital Signs Temp Pulse Pulse Resp BP BP Pulse Ox 03/02/25 13:05 65 14 118/76 98 03/02/25 12:00 98.1 F 60 18 107/74 98 03/02/25 08:46 98 F 68 18 110/70 99 03/02/25 07:38 60 03/02/25 03:03 56 L 8 L 99 03/02/25 02:09 59 L 11 L 97 03/02/25 01:06 59 L 20 98 03/02/25 00:12 64 20 109/97 98 03/02/25 00:00 57 L 03/01/25 23:15 62 17 03/01/25 22:03 82 21 96 03/01/25 21:27 64 24 97 03/01/25 20:21 68 20 115/85 98 03/01/25 20:00 98.1 F 03/01/25 19:06 127/90 03/01/25 19:06 127/90 03/01/25 19:06 88 23 03/01/25 17:00 72 22 100 03/01/25 16:45 68 27 H 100 03/01/25 16:09 72 20 99 03/01/25 16:01 126/72 03/01/25 16:00 63 O2 Del Method 03/02/25 13:05 Room Air 03/02/25 12:00 Room Air 03/02/25 08:46 Room Air 03/02/25 07:38 03/02/25 03:03 03/02/25 02:09 03/02/25 01:06 03/02/25 00:12 03/02/25 00:00 03/01/25 23:15 03/01/25 22:03 03/01/25 21:27 03/01/25 20:21 03/01/25 20:00 03/01/25 19:06 03/01/25 19:06 03/01/25 19:06 03/01/25 17:00 03/01/25 16:45 03/01/25 16:09 03/01/25 16:01 03/01/25 16:00 Recovery Score Activity: Moves 4 extremities Respiration: Deep Breath/Cough Circulation: +/-20% PreAnes Value Consciousness: Fully Awake Oxygen Saturation: O2 needed for >90% Discharge Sedation Level of Care: Fast Track Phase II
[2025-03-02] MEDS: HEPARIN (PORCINE) 1000 UNIT/ML 10 ML (CATH LAB USE ONLY) ONE (15:34)
[2025-03-02] MEDS: fentaNYL citrate PF 100 MCG/2 ML VIAL ONE ×2 (15:34→15:36)
[2025-03-02] MEDS: OPTIRAY 350 ONE (15:35)
[2025-03-02] MEDS: MIDAZOLAM HCL 1 MG/ML 2ML VIAL ONE ×2 (15:35→15:36)
[2025-03-02] MEDS: IODIXANOL (VISIPAQUE) 320 MG/ML 100ML IV ONE (15:36)
[2025-03-02] MEDS: TICAGRELOR 90 MG TAB ONE (15:37)
--- NOTE | 2025-03-02 16:02 | Cardiac Catheterization ---
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 Cardiac Status Clinical evaluation leading to the procedure CAD Presenation: STEMI Diagnostic Physicians Name: Daniel Huynh MD Closure Device Recommendations: PCI without planned CABG Cardiac Cath Procedure Full Procedure Date March 02, 2025 Pre-Procedure Diagnosis Pre-Procedure Diagnosis: STEMI AUC Score AUC Score: 9 Post-Procedure Diagnosis Post-Procedure Diagnosis: Severe CAD, Successful PCI and Normal LV Systolic Function Procedure(s) Performed Procedure(s) Performed: Coronary Angiography, Left Heart Cath, Drug Eluting Stent and IVUS Mmi Teacher Daniel Huynh MD Java Websphere Developer(s) Clarence Estimated Blood Loss Estimated Blood Loss: 15 Medication(s) Medication(s): Fentanyl, Heparin, Lidocaine 1%, Nicardipine, Nitroglycerin and Versed Medication(s): Ticagrelor Summary of Findings Indication: Staged PCI of LAD, circumflex. Post primary PCI for inferior STEMI with stent to mid to distal RCA yesterday. Access: 6 Fr right radial artery Catheters: EBU 3.5 guide Findings: LM -normal caliber, luminal irregularities LAD -medium caliber, diffuse proximal disease prior to 80% earlymid stenosis. Distal vessel without significant disease and wraps around apex. Small diagonal with diffuse disease. Ramusmedium caliber without significant disease Circumflex -small caliber, 90% mid to distal disease. Small OM's without significant disease. RCA -not visualized on current study LVEDP -11 -- PCI -- Antithrombotic therapy: Heparin, ticagrelor Procedure: Left main cannulated with EBU 3.5 guide Pre-procedure flow SALVADOR 3 [place] blue wire passed across lesion into distal LAD Whisper wire placed into small diagonal [place] IVUS catheter placed to mid LAD. Pullback revealed diffuse mid segment heterogeneous disease, greater than 80% stenosis and positive vessel remodeling with disease extending back to LAD ostium. No significant left main disease. [place] wire placed into circumflex and distal OM Mid to distal circumflex dilated with 2.5 balloon Mid to distal circumflex stented with 2.25 x 28 mm [place] Stent postdilated with 2.5 NC IC vasodilators administered for spasm Post angiography revealed well-expanded circumflex stent with no apparent coronary complication. Ostial to mid LAD across takeoff of diagonal stented with 3.0 x 34 mm Xience Stent postdilated with 3.5 NC Repeat IVUS showed well-expanded, well apposed stent with no apparent edge complications and no intraluminal abnormalities. Postprocedure angiography revealed well-expanded stent with no apparent coronary complications and SALVADOR-3 flow throughout. Arterial Closure: TR band Summary: 1. Successful PCI of proximal to mid LAD with single drug-eluting stent (3.0 x 34 mm Xience; postdilated with 3.5 NC). 2. Successful PCI of mid to distal circumflex with single drug-eluting stent (2.25 x 28 mm Xience; postdilated with 2.5 NC). Recommendations: Continue dual-antiplatelet therapy for at least 1 year Continue aggressive statin, and ASCVD risk factor modification Hemodynamics Rest Ao:: 95/61/77 Final Ao: 110/77/92 LV: 94/11 Recommendations Recommendations: PCI without planned CABG Radiation Exposure (mGy) 1589 Contrast (mls) 70 Anesthesia Moderate [id number] Procedural Complication(s) None Disposition ICU I attest to the content of the Intraoperative Record and any orders documented therein. Any exceptions are noted below. Relative.aiG Card Cath Procedure Codes Cardiac Catheterization Procedure 1: Cardiovascular Cath Procedures: 56751 Left Heart Cath (+/-LV) Therapeutic Services & Ancillary Procedure 1: Cardiovascular Tx and Anc Procedures: 10718 IV Ultrasound (Coronary or Graft) Moderate Sedation Procedure 1: Sedation/Anesthesia: 63779 Mod Sedation by the same physician;Init15 Min Child Age 5 & Up Procedure 2: Sedation/Anesthesia: 75790 Mod Sedation by the same physician; Ea [id number] Minutes Stenting Procedure 1: Cardiovascular Stent Procedures: 85691 Perc transcatheter placement of intracoronary stent(s), with ang PG Care Time/CCT Total # of Minutes Spent Total Time Spent with Patient: Total time spent is greater than 50% in coordination of care (as documented) at patient's floor/unit and/or counseling patient:
[2025-03-02] MEDS: TICAGRELOR 90 MG TAB PO SCH (21:10)
[2025-03-02 21:57] LABS: Amphetamines+Metham, Urine Neg (Neg); Barbiturates, Urine Neg (Neg); Benzodiazepine, Urine Pos (Neg); Cocaine, Urine Neg (Neg); Fentanyl, Urine Pos (Neg); MDMA (Ecstacy), Urine Neg (Neg); Marijuana, Urine Neg (Neg); Methadone, Urine Neg (Neg); Opiate, Urine Neg (Neg); Phencyclidine, Urine Neg (Neg)
--- NOTE | 2025-03-02 22:17 | XCELERA ---
[id number] \\[id number]
--- NOTE | 2025-03-02 22:24 | Cardiology Progress Note ---
Date of Service March 02, 2025 Assessment & Plan (1) CAD (coronary atherosclerotic disease): Plan: Inferior STEMIDES to mid RCA 03/01 Residual severe nonculprit [id number] mid LAD, 90% mid to distal circumflex 2. Ischemic cardiomyopathyEF 45% with inferior/inferolateral wall motion abnormality 3. Tobacco use 4. Hypertension Chest pain-free today post PCI with [place] to LAD and circumflex. Will need DAPT for at least 1 year, likely extended in the setting of multivessel stenting and aggressive underlying CAD. Continue ticagrelor today. Transition to clopidogrel tomorrow. Will load with 600 mg in the morning then 75 mg of clopidogrel daily. Continue metoprolol. Add ARB tomorrow as BP allows Continue current statin. Check lipids, A1c in a.m. Smoking cessation If stable overnight likely can be discharged tomorrow. Unclear if he is going to stay here for some time or head back to [place] right away. Will need to make sure he can get clopidogrel without interruption. Admission and Anticipated Discharge Date Admission Date: March 01, 2025 Subjective Feeling well today. No chest pain. Telemetry reviewedno events Review of Systems Review of Systems: All systems reviewed & are unremarkable except as noted in HPI & below Physical Exam Physical Exam: General: Comfortable HEENT: Sclerae anicteric Lungs: Clear to auscultation bilaterally, no crackles or wheezes Cardiac: Regular rate and rhythm, no murmurs. Vascular: Mild ecchymosis at right radial artery access site. No hematoma. Distal pulse and sensation intact. Abdomen: Soft, nontender Extremities: Well perfused, no peripheral edema Neuro: Nonfocal Psych: Alert orient x3, normal affect and mood Results & Data Vital Signs (Past 12 Hours) Vital Signs Temp Pulse Pulse Resp BP BP Pulse Ox 03/02/25 20:06 98.8 F 69 20 97 03/02/25 20:00 104/72 03/02/25 20:00 104/72 03/02/25 19:57 66 16 96 03/02/25 19:30 116/79 03/02/25 19:30 62 13 98 03/02/25 19:00 103/68 03/02/25 19:00 103/68 03/02/25 18:42 54 L 16 95/60 L 98 03/02/25 18:27 56 L 14 97 03/02/25 18:18 57 L 16 97 03/02/25 18:00 98/67 L 03/02/25 18:00 98/67 L 03/02/25 17:54 64 13 96 03/02/25 17:48 63 19 96 03/02/25 17:30 67 16 97/73 L 97 03/02/25 17:18 68 17 96 03/02/25 17:03 74 19 97 03/02/25 17:01 121/62 03/02/25 16:48 76 16 96 03/02/25 16:47 92/69 L 03/02/25 16:44 74 03/02/25 16:42 77 15 96 03/02/25 16:31 98.2 F 75 16 113/75 97 03/02/25 16:30 65 20 97 03/02/25 16:30 113/75 03/02/25 16:29 95/71 L 03/02/25 16:24 62 19 98 03/02/25 15:55 62 18 131/70 98 03/02/25 15:40 60 18 144/69 H 98 03/02/25 13:05 65 14 118/76 98 03/02/25 12:00 98.1 F 60 18 107/74 98 O2 Del Method 03/02/25 20:06 03/02/25 20:00 03/02/25 20:00 03/02/25 19:57 03/02/25 19:30 03/02/25 19:30 03/02/25 19:00 03/02/25 19:00 03/02/25 18:42 03/02/25 18:27 03/02/25 18:18 03/02/25 18:00 03/02/25 18:00 03/02/25 17:54 03/02/25 17:48 03/02/25 17:30 03/02/25 17:18 03/02/25 17:03 03/02/25 17:01 03/02/25 16:48 03/02/25 16:47 03/02/25 16:44 03/02/25 16:42 03/02/25 16:31 Room Air 03/02/25 16:30 03/02/25 16:30 03/02/25 16:29 03/02/25 16:24 05/19/25 15:55 Room Air 03/02/25 15:40 Room Air 03/02/25 13:05 Room Air 03/02/25 12:00 Room Air PG Care Time/CCT Total # of Minutes Spent Total Time Spent with Patient: Total time spent is greater than 50% in coordination of care (as documented) at patient's floor/unit and/or counseling patient: Coding Level of Care Code 00720 SUB INP/OBS CARE 3/50MIN Diagnoses CAD (coronary atherosclerotic disease) I25.10
[2025-03-03 04:55] LABS: Hematocrit (blood only) 40.3 % (42.0-52.0); Hemoglobin 13.4 g/dl (14.0-18.0); Mean Corpuscular Hemoglobin 28.6 pg (25.0-34.0); Mean Corpuscular Hgb Conc 33.3 g/dL (32.0-36.0); Mean Corpuscular Volume 85.9 fL (80.0-100.0); Mean Platelet Volume 9.8 fL (9.4-12.4); Platelet Count 290 K/uL (130-400); RDW Coefficient of Variation 13.9 % (11.5-14.5); RDW Standard Deviation 43.4 fL (36.4-46.3); Red Blood Count 4.69 M/uL (4.70-6.10); White Blood Count 8.65 K/ul (4.8-10.8)
[2025-03-03 05:41] LABS: Albumin Globulin Ratio 1.1 (0.9-2); Albumin Level 3.8 gm/dl (3.4-5.0); BUN Creatinine Ratio 17.3 (10-20); Bilirubin,Total 1.3 mg/dl (0.2-1.0); Chol HDL Ratio 7.2 (0-5); Creatinine Clr Calc Pharmacy 78.9 ml/min; Globulin 3.6 gm/dl (2.5-4.0); Potassium 3.6 mmol/L (3.5-5.1); Total Protein 7.4 gm/dl (6.0-8.3)
--- NOTE | 2025-03-03 06:37 | Hospitalist Progress Note ---
Date of Service March 03, 2025 Assessment & Plan (1) Chest pain: (2) Acute MS inferior lateral first episode care: Plan Pt is a 44 yo male who presented to ED with chest pain and found to have ECG with findings of acute inferior lateral MS. HR was stable in the 60's, BP was elevated 150/106, O2 sat was >90% on RA. Pt was taken to [facility] for angio and stent. #Chest pain/Acute inferolateral MS Pt was taken to [facility] and found to have 100% occlusion at mid-distal RCA, which was stented. Other occlusions found: Mid LAD- 80%, left circumflex-90% at mid segment stenosis followed by focal 70-80% stenosis. Pt admitted to ICU, followed by critical care team. Planned for return to [facility] today for stenting of LAD and left circumflex. - Interventional cardiology consult, recommendations appreciated: Continue aspirin Brilinta x 1 yr Continue beta-stef and statin Echocardiogram for 03/02/25 Outpatient cardiac rehab following hospital DC PCI of left circumflex and LAD scheduled for today Follow up with cardiology outpatient in 4 weeks - Critical care team following Continue metoprolol, aspirin, atorvastatin - Ordered A1c, lipid panel- will follow Dispo: ICU Code: Full Diet: NPO, heart healthy diet following procedure DVT prophylaxis: Heparin drip Admission and Anticipated Discharge Date Admission Date: March 01, 2025 Review of Systems Review of Systems: As per HPI Physical Exam Physical Exam: Pt examined following cardiac cath and stent placement Gen: Sitting up in bed, NAD Cardio: RRR, S1, S2, no murmurs Respiratory: CTAB, No increased work of breathing. Abd: Soft, nontender, normoactive BS Neuro: A&O x 3 Skin: Dry, no rashes Extremities: Able to move all extremities on command. No LE edema noted Psych: Mood congruent Results & Data Results & Data Vital Signs (Past 12 Hours) Vital Signs Temp Pulse Resp BP Pulse Ox O2 Del Method 03/03/25 02:33 66 13 03/03/25 02:30 36.5 C 03/03/25 02:28 107/72 03/03/25 02:18 60 14 97 03/03/25 02:00 58 L 18 98 03/03/25 02:00 93/62 L 03/03/25 02:00 93/62 L 03/03/25 01:33 63 19 97 03/03/25 00:00 103/78 03/03/25 00:00 103/78 03/02/25 23:54 60 16 98 03/02/25 23:50 62 03/02/25 22:03 66 22 97 03/02/25 22:00 120/84 03/02/25 22:00 120/84 03/02/25 22:00 120/84 03/02/25 21:54 36.4 C L 63 22 98 Room Air 03/02/25 20:06 37.1 C 69 20 97 03/02/25 20:00 104/72 03/02/25 20:00 104/72 03/02/25 19:57 66 16 96 03/02/25 19:30 116/79 03/02/25 19:30 62 13 98 03/02/25 19:00 103/68 03/02/25 19:00 103/68 03/02/25 18:42 54 L 16 95/60 L 98 (1) Chest pain Chest pain type: unspecified Qualified Code(s): R07.9 - Chest pain, unspecified
[2025-03-03 07:20] LABS: Estimated Average Glucose 120 mg/dl; Hemoglobin A1C 5.8 % (4.5-5.6)
[2025-03-03] MEDS: ATORVASTATIN 40 MG TAB PO SCH (08:06)
[2025-03-03] MEDS: CLOPIDOGREL BISULFATE 300 MG TAB PO ONE (08:06)
[2025-03-03 11:16] VITALS: BP 122/80; PULSE 68; RESP 15; TEMP 97.9; O2SAT 98
--- NOTE | 2025-03-03 12:22 | Discharge Summary ---
Date of Service March 03, 2025 Admission HPI Per Admitting Provider Pt is a 44 yo male with PMH of HTN and kidney stone who presented to ED with 2 days of chest pain, SOB and cold sweats that progressed over the last 24 hours. Translation services was used for interview and exam as speaks mandarin austrian only. He is from [place] and arrived in the in Nov 2024. His is in [place] visiting friends/family, pt came to [place] 3 days ago to visit friends. At bedside is pt's friends and 2 children- who speaks Syriac and mandarin and assists somewhat with translation. Pt reports that he was feeling unwell when he arrived in [facility], but symptoms increased last night prompting him to come to ED. Pt's friend states this morning pt was pale, sweating and SOB. Pt denies personal history of heart problems. He does not know if he has high cholesterol. He endorses smoking 1 pack of cigarettes per day for many years. Pt states he was taking amlodipine 5mg for HTN up until 2 weeks ago, when he stopped taking due to normal BP. Pt's father from an [place] in his 60's. No other known family history of cardiac problems. Pt denies abdominal pain, headache, nausea, vomiting, syncope, extremity weakness, altered sensation, or dysuria Pt denies alcohol or recreational drug use. Principal Diagnosis Acute MN Discharge Exam Video field sampling technician services used for exam Gen: Sitting up in bed, NAD Cardio: RRR, S1, S2, no murmurs Respiratory: CTAB, No increased work of breathing. Abd: Soft, nontender, normoactive BS Neuro: A&O x 3 Skin: Dry, no rashes Extremities: Able to move all extremities on command. Mild edema at right wrist area cath insertion site Psych: Mood congruent Discharge Data Allergies Allergy/AdvReac Type Severity Reaction Status Date / Time No Known Allergies Allergy Unverified 03/01/25 20:25 Consultations 03/01/25 11:47 ED Decision to Admit Stat 03/02/25 11:58 Consult Cardiology Routine Procedures Performed Operation Date: 03/02/25 13:00 Actual Procedures p Cineradiography w/Routine Exam - Daniel Huynh MD s Drug Eluting Stent SGl Vessel - Daniel Huynh MD s IVUS Coronary Single Vessel - Daniel Huynh MD Ordered Studies 03/01/25 11:47 CL Cath Imgs for PACS use only Stat 03/02/25 14:03 CL Cath Imgs for PACS use only Routine 03/02/25 15:32 CL IVUS Coronary Single Vessel Routine Hospital Course (1) Chest pain: (2) Acute MN inferior lateral first episode care: Plan Pt is a 44 yo male who presented to ED with chest pain and found to have ECG with findings of acute inferior lateral MN. HR was stable in the 60's, BP was elevated 150/106, O2 sat was >90% on RA. Pt was taken to [facility] for angio and stent. #Chest pain/Acute inferolateral MN Pt was taken to [facility] and found to have 100% occlusion at mid-distal RCA, which was stented 03/01/25. Other occlusions found: Mid LAD- 80%, left circumflex-90% at mid segment stenosis followed by focal 70-80% stenosis. Pt returned to [facility] on 03/02 for PCI of LAD and LCA. Pt returned to ICU, followed by critical care team. - Interventional cardiology consult, recommendations appreciated: Load clopidogrel, start 75mg for home dose Continue aspirin Continue beta-stef and statin Start ARB Echocardiogram completed- shows inferior wall hypokinesis, 40-45% EF Outpatient cardiac rehab following hospital DC Follow up with cardiology outpatient in 4 weeks - Critical care team following Continue metoprolol, aspirin, atorvastatin - A1c is 5.8 - Lipid panel- total 210, HDL- 29, LDL-151 Dispo: ICU Code: Full Diet: heart healthy diet following procedure DVT prophylaxis: Heparin drip Total Time Total Time Spent Total Time Spent (In Minutes): >30 Discharge Plan Discharge Items Patient Disposition: Home - Self-Care Reason For Visit: STEMI Discharge Diagnosis: STEMI Condition on Discharge: Fair Activity: Per Instructions section Non-emergency contact: Primary Care Provider and Warehouse Delivery Driver Call non-emergency contact if: your symptoms worsen Follow-up/Referrals: PCP,NO [Primary Care Provider] - Diet: Heart Healthy Addtl Attending Provider Instructions: Heart attack - the symptoms that brought you to the hospital were caused by heart attackin your case a complete blockage of your right coronary artery; unfortunately you also had serious blockages in your left anterior descending and left circumflex coronary arteries as well - there was a moderate degree of damage to your heart muscle from the heart attackcurrently your heart squeezes at 40-45% (normal is about 55%), but fortunately overall you are doing quite well considering the circumstances - managing all of this will be a long-term planwith medications and lifestyle modification to try to prevent future blockages from worsening/stabilize the blockages that are already there, and help your heart remodel and get stronger from the damage medications: - Aspirin and Plavix: Both of these are antiplatelet blood thinner medications. When the full fashioned garment knitter puts a stent into the coronary, it helps brace open the blockage, but for about a year, until the lining of the blood vessel is able to grow over the stent, there is a risk of clots forming within the stent. Being on both aspirin and Plavix essentially reduces this risk to near 0, but it is very important to be on both until a full fashioned garment knitter instructs you that it is safe to reduce to just one of the 2 (typically after about a year). While you are on 2 blood thinners, fortunately we do not usually see a lot of serious bleeding with this particular combination. You may notice easier bruising than normal, but it is pretty rare to see truly serious bleeds - atorvastatin: This medication is doing 2 things for you, it is lowering your "artery clogging cholesterol", and more importantly, atorvastatin at high doses tends to stabilize the blockages that are already in your coronaries making it less likely for them to split open. Fortunately most people tolerate these kind of medicines quite well. A very small percentage will get muscle aches (if it happens it usually feels like you have the flu, but you do not end up actually having the flu)if this happensstopping the medicine usually makes the side effects go away within a few weeks (but again it is quite rare for it to happen at all). Typically your primary care doctor will follow liver enzymes periodically as well. Metoprolol: This is a "blood pressure medicine"but really it is more important role is that as a beta-stef, it makes your heart not have to work as hard, and slows your heart rate down somemaking your heart require a little bit less blood flow (and therefore making it tolerate the blockages of blood flow better). You will be on a very low-dose of this, most people tolerate it quite well, but it can sometimes make people feel lightheaded or dizzy, or fatigued. Typically if the side effects happen, it often gets better quickly once our body gets used to the medication. If not, then it may be worth talking to your [facility] doctor about a change in medication. - valsartan: This is a different type of "blood pressure medicine" but in the context of your heart muscle being weaker, it serves a very important role of r educing how hard your heart has to push with each heartbeat. It opens up blood flow, and therefore reduces pressure, and your kidneys. Because our kidneys take about 20% of all blood flow, reducing the pressure at the kidney level reduces the back pressure on your heart, and usually lets it get stronger better after a heart attack. While most people's kidneys do better with the reduced pressure, a very small percentage cannot tolerate the medicationbecause of this, we strongly recommend having lab work (basic metabolic panel/BMP) done within 1-2 weeks to ensure that your kidneys are tolerating this medicine well (again most people's do, but the small percentage of people who do not tolerate it, if we see problems on lab work immediately and stop the medicine, things go back to normalif not there can be permanent kidney impairment) nitroglycerin: This will be the "emergency medication"if you feel chest pain like you did the day you came to the hospital, you should take a nitroglycerin under your tongue. Within 5 minutes if the nitroglycerin has not fixed the chest pain, take a second nitroglycerin. Within 5 minutes of the second nitroglycerin if the chest pain has not gone away, take a third nitroglycerin, and aspirin, and go immediately to the nearest hospital. Hopefully you will not need this medication, but it is the "safety net" we will have you stop your amlodipine since you don't appear to need multiple medicines for your blood pressure, and the metoprolol and lisinopril are much more important to take strain off your heart. lifestyle modifications: - The single most important thing you can do to prevent future blockages/future heart attacks/future damage to your heart is to quit smoking. You have pretty serious heart disease at a very young age, and smoking unfortunately is the biggest reason that we see people clog arteries so young. You had talked about cutting down, but this is only marginally better, and so I would only look at cutting down as a bridge to quitting entirely. It is really better off if you never smoke a cigarette again in your life. - The second most important thing you can do to stabilize the blockages that are there, and reduce chances of future blockages is regular cardiovascular exercise. Give yourself a few weeks to recover from the current heart attack, but then make it a goal to do some sort of cardiovascular exercise 20-30 minutes every day of your life (knowing that of course, you will not be perfect, but make the goal to do it every day and then do the best you can!). Exercise would be considered cardiovascular if it is something that gets your heart rate up, and gets your breathing more rapid. - eating habits: people really reduce their chances of worsening blockages and future heart attacks if they shift their diet to mostly eating fruits and vegetables, lean sources of protein (such as chicken and fish), and minimal on starch, bread, sugar (minimal on simple carbohydrates) -your A1c (a marker of sugar average for about the last 3 months) was 5.8% - basically "mildly prediabetic" - while the biggest thing we worry about with sugar is that high sugars clog arteries (and therefore the most common complication from high sugar is a heart attack) - for you the numbers are too low right now to have been a contributor (typically "high sugars clog arteries" doesn't even start until an A1c of at least 7), and since most of type 2 diabetes is caused by our eating and exercise habits, you should be able to prevent ever becoming diabetic (or at least delaying it by decades) by eating l ess bread/starch/sugar and exercising 20-30 minutes a day remember that this is a lifelong problem - and the better you do with taking your medications appropriately, eating healthy, exercising regularly, and stopping smoking the less likely you are to be terribly disabled from premature heart disease or young. for follow up and coordination - DEFINITELY sign up for the [employer] portal at [employer] - this will give you access to almost all of the information in your chart (it will basically have all the reports and labs, just not the actual pictures from imaging like in the [facility], but will have the cardiology procedure reports from the cath and stenting) - given that we'll need to be trying to coordinate taking care of across languages and medical cultures, having that information to share will be really critical to making sure that people back home can pick things up and keep taking care of you right where we left off. also if any doc taking care of you in the future were to need to reach us - call our office at [phone] - Gloria usually is the person answering the phone and she could pass the message along! To Do: -take the above medications without interruption -go to the nearest hospital [facility] if you have any recurrence in symptoms that feel like the chest pain you felt the day you came in -have labs (BMP, basic metabolic panel) drawn in 1-2 weeks to ensure your kidneys are tolerating the valsartan well (we expect you to tolerate it fine) -have labs (CMP, complete metabolic panel) drawn in ~3 months to follow up on tolerating the atorvastatin (we expect you to tolerate it fine) -stop smoking -after a few weeks, start to work towards 20-30 minutes of cardiovascular exercise -eat a diet mostly of fruits and vegetables -get set up with a primary care physician and full fashioned garment knitter back home; have them follow you closely and adjust the medication dosing based on how you're feeling / your follow up labs / your blood pressure readings Pending Studies at Discharge: No Stand-Alone Forms: My [employer], Smoking Cessation Medications and DC Order Prescriptions: New clopidogrel 75 mg Tablet 75 mg PO QAM Qty: 90 0RF aspirin 81 mg Tablet,Delayed Release (Dr/Ec) 81 mg PO QAM Qty: 90 0RF nitroglycerin [Nitrostat] 0.4 mg Tablet, Sublingual 0.4 mg sublingual Q5M PRN (Reason: chest pain) Qty: 30 0RF metoprolol tartrate 25 mg Tablet 25 mg PO HS Qty: 90 0RF valsartan 80 mg tablet 80 mg PO DAILY Qty: 90 0RF atorvastatin 80 mg tablet 80 mg PO DAILY Qty: 90 0RF Discontinued amlodipine 5 mg Tablet 5 mg PO DAILY Discharge Orders: Discharge Order (Routine); Ordered 03/03/25 Ordered By: Viktor Harp Admission Data Admit Date/Time: 03/01/25 12:06 Attending Provider: Viktor Harp Admit Provider: Katia Koenig Primary Care Provider: PCP,NO Other Providers: Katia Koenig; Toño Hammer; Mark Wolf; Murali Lance; Shahram Tellez; Rodney Florez; Stanton Pichardo Jr; Darren Garcia; Debra Mcgovern; Mellisa Solorzano; Daniel Huynh; Daniel Gonzalez; Melany Gomez; Toñito Beatty; Rosita Mckenzie; Toñito Monson; Gwyn Waldrop; Goyo Feng Supervising Physician Co-Signing Physician Notes I personally examined the patient and verified all hager points of history and exam, discussed case, and agree with decision making with Dr Villalta seen twice. first with assistance of bilingual medical assistant, second time he/ preferred that i talk with their friend (although bilingual medical assistant was offered) - he is going to be going back to [place] in near future, asked really good questions, discussed medications, lifestyle, follow up. see dc instructions for details; tried to run through [employer] but [employer] will not allow paste of austrian characters - pt aware that instructions are written in detail and notes that he will be able to have assistance in translating (also i went over things in detail in the room with him personally - first starting with bilingual medical assistant, later on revisit with his friend (based on pt and 's stated preference, although interpreter for the deaf was offered) vitals noted, in general he is awake and alert pleasant no distress. HEENT normocephalic atraumatic mucous membranes moist. Thing unlabored no accessory muscle use good effort. Skin without rashes pallor or icterus. Neuro without focal deficits. STEMI/coronary artery disease - triple-vessel disease, status post stenting of the culprit lesion for the STEMI, and yesterday re-stenting of other lesions - asa/plavix/atorvastatin/valsartan/metoprolol and prn nitrates -BMP 1-2 wks, CMP ~3 months -smoke cessation, 20-30mins cardio daily (after a few weeks to recover), mediterannean style diet -see instructions Resident Activity Tracking Resident Involvement: Resident Care Provided Care Provided: Adult Hospital Medicine
--- NOTE | 2025-03-03 13:07 | Electrocardiogram Report ---
Test Reason : Blood Pressure : */* mmHG Vent. Rate : 60 BPM Atrial Rate : 60 BPM P-R Int : 188 ms QRS Dur : 94 ms QT Int : 462 ms P-R-T Axes : 60 9 -51 degrees QTcB Int : 462 ms Normal sinus rhythm Inferior infarct , subacute (cited on or before 01-Mar-2025) T wave abnormality, consider lateral ischemia Abnormal ECG When compared with ECG of 01-Mar-2025 20:18, Serial changes of evolving Inferior infarct Present Confirmed by Murali Lance ([id number]) on 03/03/2025 1:07:17 PM Referred By: REFERRED SELF Confirmed By: Murali Lance
--- NOTE | 2025-03-03 14:58 | Billing Data ---
Date of Service March 03, 2025 Coding Level of Care Code 19779 INP/OBS DISCH >30 MIN
[2025-03-03] MEDS ORDERED: CLOPIDOGREL BISULFATE 75MG Homepack PO ONE (15:07)
--- NOTE | 2025-03-03 22:59 | Cardiology Progress Note ---
Date of Service March 03, 2025 Assessment & Plan (1) CAD (coronary atherosclerotic disease): Plan: Inferior STEMIDES to mid RCA 03/01 Residual severe nonculprit [id number]% mid LAD, 90% mid to distal circumflex 2. Ischemic cardiomyopathyEF 45% with inferior/inferolateral wall motion abnormality 3. Tobacco use 4. Hypertension 5. DyslipidemiaLDL 151 6. Borderline A1c5.8 Chest pain-free post PCI with [place] to LAD and circumflex yesterday. From a cardiac standpoint okay with discharge today. Discussed his condition and long-term management including smoking cessation, dietary modification and exercise restrictions/goals with patient and his fa jay. Also stressed importance of DAPT without interruption with aspirin, clopidogrel. Will need DAPT for at least 1 year, likely extended in the setting of multivessel stenting and aggressive underlying CAD. Continue current metoprolol Continue current statin. Consider Zetia as an outpatient. Smoking cessation If still local follow-up with me in 2 weeks. Admission and Anticipated Discharge Date Admission Date: March 01, 2025 Subjective Feeling well today. No chest pain. Telemetry reviewedno events Review of Systems Review of Systems: All systems reviewed & are unremarkable except as noted in HPI & below Physical Exam Physical Exam: General: Comfortable HEENT: Sclerae anicteric Lungs: Clear to auscultation bilaterally, no crackles or wheezes Cardiac: Regular rate and rhythm, no murmurs. Vascular: Mild ecchymosis at right radial artery access site. No hematoma. Distal pulse and sensation intact. Abdomen: Soft, nontender Extremities: Well perfused, no peripheral edema Neuro: Nonfocal Psych: Alert orient x3, normal affect and mood Results & Data Vital Signs (Past 12 Hours) Vital Signs Temp Pulse Resp BP Pulse Ox O2 Del Method 03/03/25 11:15 97.9 F 68 15 122/80 98 Room Air PG Care Time/CCT Total # of Minutes Spent Total Time Spent with Patient: Total time spent is greater than 50% in coordination of care (as documented) at patient's floor/unit and/or counseling patient: Coding Level of Care Code 16242 SUB INP/OBS CARE 2/35MIN Diagnoses CAD (coronary atherosclerotic disease) I25.10
[2025-03-04] MEDS ORDERED: CLOPIDOGREL BISULFATE 75 MG TAB PO SCH (09:00)
== END 2025-03-03 16:08 | disposition home or self-care (01) | DRG 322 ==
LOC: ED 11:11 → 1E 12:00 → SUATTDRO 12:06 → 1E 12:06
DX: E78.5 Hyperlipidemia, unspecified; F17.210 Nicotine dependence, cigarettes, uncomplicated; Z79.899 Other long term (current) drug therapy; I21.19 ST elevation (STEMI) myocardial infarction involving other coronary artery of inferior wall; I10 Essential (primary) hypertension